=== PATIENT | female | born 1975 | race Two or more races ===

== ENCOUNTER 2017-02-11 19:48 | Emergency (ER) | payer OTHER ==
[~2017-02-11] VITALS: Ht 172.7 cm; Wt 68.0 kg
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
--- NOTE | 2017-02-11 21:26 | NUR ---
Patient discharged to home in stable condition. Written and verbal after care instructions given. Patient verbalizes understanding of instruction. nad noted upon dsicharge, given rx, no other questions, will follow up with pmd.
[2017-02-11 21:27] VITALS: BP 114/75
== END 2017-02-11 21:28 | disposition home or self-care (01) ==
LOC: ER 19:52
DX: S00.03XA Contusion of scalp, initial encounter (principal); M54.5 Low back pain; Y08.89XA Assault by other specified means, initial encounter; Y93.89 Activity, other specified; Y92.89 Other specified places as the place of occurrence of the external cause; Y99.8 Other external cause status
CPT/HCPCS: 70450; 72040; 72100; 99284; A4606; Z7610

== ENCOUNTER 2021-12-30 13:46 | Emergency (ER) | payer OTHER ==
[~2021-12-30] VITALS: Ht 172.7 cm; Wt 79.4 kg
[2021-12-30 14:09] VITALS: BP 113/66
--- NOTE | 2021-12-30 14:10 | NUR ---
PT BIBS C/O LEFT EYE REDNESS STARTED ON SUN DAY AND IT WORST TODAY.PT IS A/O X4, PT CONNECTED TO MONITOR.
--- NOTE | 2021-12-30 14:43 | NUR ---
Patient discharged to home in stable condition. Written and verbal after care instructions given. Patient verbalizes understanding of instruction.
== END 2021-12-30 14:44 | disposition home or self-care (01) ==
LOC: ER 13:54
DX: H11.32 Conjunctival hemorrhage, left eye (principal); F32.A Depression, unspecified; F41.9 Anxiety disorder, unspecified